=== PATIENT | female | born 1995 | race Caucasian/White ===

== ENCOUNTER 2017-04-14 22:41 | Emergency (ER) | payer OTHER ==
[2017-04-14 22:55] VITALS: BP 126/85; PULSE 79; TEMP 98.6; BMI 23.8
--- NOTE | 2017-04-15 01:36 | PDOC ---
History of Present Illness - General Chief Complaint: Bite Stated Complaint: BITE Time Seen by Provider: 04/15/17 00:16 History Source: Patient - History of Present Illness Initial Comments: 04/15/17 01:36 CC: L foot rash/pain Patient was working outside on Friday (04/13) when she felt a stinging pain in her R foot. Patient notes she did not see any bees or insects and her foot swelled slightly after the bite. Patient states the swelling has continued but not increased and complains of intermittent pain. Patient denies any throat swelling, hives, fever, chills, shortness of breath, nausea, vomiting or diarrhea. Past History - Past Medical History Allergies/Adverse Reactions: Allergies Allergy/AdvReac Type Severity Reaction Status Date / Time No Known Allergies Allergy Verified 04/14/17 22:55 Home Medications: Ambulatory Orders Minocycline HCl 75 mg PO DAILY 07/03/15 Cephalexin [Keflex] 500 mg PO BID #14 capsule 04/15/17 Other medical history: DENIES - Immunization History Immunization Up to Date: Yes - Psycho/Social/Smoking Cessation Hx Anxiety: No Suicidal Ideation: No Smoking History: Never smoked Hx Alcohol Use: No Drug/Substance Use Hx: No Substance Use Type: None Review of Systems - Review of Systems Constitutional: No: Chills, Diaphoresis HEENTM: No: Blurred Vision, Double Vision, Tinnitus, Hearing Loss Respiratory: No: Cough, Orthopnea, Stridor, Wheezing Cardiac (ROS): No: Chest Pain, Edema ABD/GI: No: Constipated, Diarrhea, Nausea, Vomiting Neurological: No: Headache, Numbness Psychiatric: No: Anxiety, Depression All Other Systems: Reviewed and Negative *Physical Exam - Vital Signs Last Vital Signs Temp Pulse Resp BP Pulse Ox 98.6 F 79 18 126/85 100 04/14/17 22:53 04/14/17 22:53 04/14/17 22:53 04/14/17 22:53 04/14/17 22:53 - Physical Exam General Appearance: Yes: Nourished, Appropriately Dressed HEENT: positive: EOMI, RYAN Neck: positive: Trachea midline, Supple Respiratory/Chest: positive: Chest Tender, Lungs Clear Cardiovascular: positive: Regular Rhythm, Regular Rate, S1, S2 Gastrointestinal/Abdominal: positive: Normal Bowel Sounds, Flat Extremity: positive: Other (Multiple 1-2 cm in diameter circular macular papular rash, neurovascularly intact, minor erythema) Integumentary: positive: Normal Color, Dry Neurologic: positive: Fully Oriented, Alert Medical Decision Making - Medical Decision Making 04/15/17 04:12 Patient is a 21 y.o. female with no significant PMH who presents c/o rash and associated pruritus following an unidentified insect sting on her R foot. As patient has remained afebrile with no other signs of systemic infection however there was some erythema patient was given a prescription for Keflex and instructed to take Benadryl for pruritus. Patient was instructed to return to the ED should she experience fever, throat swelling, lip swelling or severe discomfort. *DC/Admit/Observation/Transfer Diagnosis at time of Disposition: Bite from insect - Discharge Dispostion Disposition: HOME Condition at time of disposition: Good Admit: No - Prescriptions Prescriptions: Cephalexin [Keflex] 500 mg PO BID #14 capsule - Referrals Referrals: Nayely Rodriguez [Primary Care Provider] - - Patient Instructions Printed Discharge Instructions: How to Care for an Insect Bite or Sting Additional Instructions: Please return to the Emergency Department should you experience severe pain, shortness of breath or fevers. - Post Discharge Activity Work/School Note: Back to Work
--- NOTE | 2017-04-15 01:57 | PDOC ---
Attending Attestation - Resident Resident Name: FlorArabella - ED Attending Attestation I have performed the following: I have examined & evaluated the patient, The case was reviewed & discussed with the resident, I agree w/resident's findings & plan, Exceptions are as noted - HPI HPI: 04/15/17 01:56 21 yo F s/p bug bit to right foot, now with redness swelling. itching. no f/c no tongue or lip swelling no sob. no topical treatment. happened 3 days ago. - Physicial Exam PE: 04/15/17 01:56 awake alert lungs clear heart rrr nomrg. skin right foot mild erythema. swelling. 2 + dp/ pt. no crepitus. vasc, intact. - Medical Decision Making 04/15/17 01:57 plan will tx with prophylactic abx, topical steroids, and benadryl for itching. dc home.
== END 2017-04-15 02:06 | disposition home or self-care (01) ==
LOC: JER 22:41
DX: S90.861A Insect bite (nonvenomous), right foot, initial encounter (principal); W57.XXXA Bitten or stung by nonvenomous insect and other nonvenomous arthropods, initial encounter; Y93.89 Activity, other specified; Y92.89 Other specified places as the place of occurrence of the external cause
CPT/HCPCS: 99281-25

== ENCOUNTER 2020-10-17 18:47 | Emergency (ER) | payer OTHER ==
[2020-10-17 18:55] VITALS: BP 154/82; PULSE 108; TEMP 97.8; BMI 24.7
== END 2020-10-17 20:23 | disposition home or self-care (01) ==
LOC: JERFT 18:47
DX: K62.5 Hemorrhage of anus and rectum (principal); K59.00 Constipation, unspecified
CPT/HCPCS: 99282-25